=== PATIENT | female | born 1945 | race Caucasian/White ===

== ENCOUNTER 2017-07-03 08:09 | Outpatient (RCR) | payer MEDICARE ==
[2017-05-01 08:11] VITALS: BP 134/70
[2017-05-01] MEDS: LIDOCAINE/SOD BICARB 8.4% SYR ID PRN (08:13)
[2017-05-01] MEDS: HEPARIN FLSH (PORT) 500 UN/5ML IVP PRN (08:14)
[2017-06-05 08:14] VITALS: BP 155/88
[2017-06-05] MEDS: LIDOCAINE/SOD BICARB 8.4% SYR ID PRN (08:18)
[2017-06-05] MEDS: HEPARIN FLSH (PORT) 500 UN/5ML IVP PRN (08:18)
[~2017-07-03] VITALS: Ht 165.1 cm; Wt 61.9 kg
[~2017-07-03 08:09] MED LIST: ALTEPLASE RECOMB 2 MG VIAL IVP PRN; CHOL500050 PO; DEXTROSE 5%(*) 100 ML BAG 100 ML IVPB PRN; GABA-549 PO; IBUP600T22 PO; NS(*) 0.9% 100 ML BAG 100 ML IVPB PRN; NS(*) 0.9% 500 ML BAG 500 ML IV PRN; WATER STERILE 10 ML VIAL IVP PRN
[2017-07-03 08:13] VITALS: BP 135/77
[2017-07-03] MEDS: LIDOCAINE/SOD BICARB 8.4% SYR ID PRN (08:15)
[2017-07-03] MEDS: HEPARIN FLSH (PORT) 500 UN/5ML IVP PRN (08:15)
== END 2017-07-29 ==
LOC: SPU 08:09
PROVIDERS: ATTEND Internal Medicine Hematology
DX: C50.919 Malignant neoplasm of unspecified site of unspecified female breast (principal); M81.0 Age-related osteoporosis without current pathological fracture; E04.1 Nontoxic single thyroid nodule; R53.83 Other fatigue
CPT/HCPCS: 96523; J1642

== ENCOUNTER 2017-10-02 08:09 | Outpatient (RCR) | payer MEDICARE ==
[2017-07-31] MEDS: LIDOCAINE/SOD BICARB 8.4% SYR ID PRN (08:19)
[2017-07-31] MEDS: HEPARIN FLSH (PORT) 500 UN/5ML IVP PRN (08:19)
[2017-07-31 08:20] VITALS: BP 160/82
[2017-08-28 08:13] VITALS: BP 162/88
[2017-08-28] MEDS: LIDOCAINE/SOD BICARB 8.4% SYR ID PRN (08:16)
[2017-08-28] MEDS: HEPARIN FLSH (PORT) 500 UN/5ML IVP PRN (08:17)
[~2017-10-02 08:09] MED LIST changes: +WATER FOR INJ,STERILE 20 ML IVP PRN; -WATER STERILE 10 ML VIAL IVP PRN
[2017-10-02 08:14] VITALS: BP 155/84
[2017-10-02] MEDS: LIDOCAINE/SOD BICARB 8.4% SYR ID PRN (08:18)
[2017-10-02] MEDS: HEPARIN FLSH (PORT) 500 UN/5ML IVP PRN (08:21)
== END 2017-10-28 ==
LOC: SPU 08:09
PROVIDERS: ATTEND Internal Medicine Hematology
DX: C50.919 Malignant neoplasm of unspecified site of unspecified female breast (principal); M81.0 Age-related osteoporosis without current pathological fracture; E04.1 Nontoxic single thyroid nodule
CPT/HCPCS: 96523; J1642

== ENCOUNTER 2018-01-01 08:12 | Outpatient (RCR) | payer MEDICARE ==
[2017-10-30 08:17] VITALS: BP 136/78
[2017-10-30] MEDS: HEPARIN FLSH (PORT) 500 UN/5ML IVP PRN (08:22)
[2017-10-30] MEDS: LIDOCAINE/SOD BICARB 8.4% SYR ID PRN (08:22)
[2017-12-04] MEDS: LIDOCAINE/SOD BICARB 8.4% SYR ID PRN (08:20)
[2017-12-04 08:21] VITALS: BP 155/78
[2017-12-04] MEDS: HEPARIN FLSH (PORT) 500 UN/5ML IVP PRN (08:21)
[2017-12-04 08:38] LABS: PLATELET COUNT, AUTOMATED 193 K/uL (150-450)
[2017-12-20 08:37] VITALS: BP 153/78
--- NOTE | 2017-12-20 09:36 | [facility] ONCOLOGY NOTE ---
EVENT DATE: December 20, 2017 CHIEF COMPLAINT Patient is here today for follow up of her breast cancer. ONCOLOGY HISTORY The patient is a 72-year-old postmenopausal woman who was diagnosed with stage IIIA ([id number]) left breast cancer diagnosed November 17, 2010. The patient had left mastectomy and axillary lymph node dissection on November 29, 2010. Pathology came back positive for invasive adenocarcinoma, ductal type. Tumor size was 3.7 x 3.5 x 2.2, grade III/III. No skin or brian involvement or skeletal muscle involvement. There was extensive associated DCIS with comedo necrosis. Margins were close, 5 mm from the lid margin. 4 out of 11 lymph nodes came back positive for metastasis. The largest was 8 mm. Tumor was ER negative, KY negative, HER2/ric positive (3+ by immunohistochemistry). The patient received four courses of AC in dose dense between January 25, 2011 through March 2011. The patient started Herceptin therapy with paclitaxel, and she received 5 /12 weeks between March 2011 through May 03, 2011. The patient could not complete the Taxol therapy because of significant neuropathy. She started Herceptin every three weeks on June 07, 2011, which was discontinued after that because of deterioration of the left ventricular ejection fraction. Her left ventricular ejection fraction by echocardiogram in August 2011 was low at 45 , with significant decrease compared to her initial one in May 2011 which was 60 to 65%. After that, the patient completed her one year of adjuvant Herceptin therapy on May 16, 2012. She moved from [place] to [place], [place]. The patient currently in complete remission. HISTORY OF PRESENT ILLNESS Patient is here today for followup of her left breast cancer. She is doing fine currently. She has nasal discharge. She has low back pain. She has neuropathy with tingling and numbness in the hands and feet, which are getting better with time and gabapentin use. Other than that, patient is doing very well. PAST MEDICAL HISTORY 1. Migraine headache. 2. 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 3. Left breast cancer. 4. Taxol-induced neuropathy. 5. Thyroid nodules. 6. Diverticulitis. PAST SURGICAL HISTORY 1. Cholecystectomy in 2005. 2. D and C in 2007. 3. Total abdominal hysterectomy with salpingo-oophorectomy on April 23, 2008 , and the patient was noted to have focal superficial invasive adenocarcinoma, endometrial type, FIGO grade I. Ovaries were noted to be benign. The patient did not receive any chemotherapy or radiation therapy after that. 4. Left mastectomy with left axillary lymph node dissection done on November 20, 2010. SOCIAL HISTORY The patient is a retired teacher. She is . She has one son. She has smoked about one-half pack for forty years and is still smoking. She drinks a glass of wine occasionally with dinner. Denies any abuse of illicit drugs. FAMILY HISTORY Maternal grandmother had pancreatic cancer at the age of 74. Maternal uncle with leukemia at age of 58. Maternal aunt with ovarian cancer at the age of 75. CURRENT MEDICATIONS 1. Gabapentin 300 mg three times daily. 2. Vitamin D3, 2000 U daily. 3. Ibuprofen 600 mg at bedtime p.r.n. ALLERGIES No known drug allergies. REVIEW OF SYSTEMS CONSTITUTIONAL: No appetite or weight change. No fever, chills or sweating. No recent infection. HEENT: Ears: No tinnitus or hearing problem. Nose: She has nasal discharge. Throat: No sore throat or mouth ulcers. Eyes: No diplopia or visual changes. RESPIRATORY: No shortness of breath. No cough, expectoration or hemoptysis. CARDIOVASCULAR: No chest pain, orthopnea, or paroxysmal nocturnal dyspnea (PND) . No edema. No palpitations. GASTROINTESTINAL: No nausea or vomiting. No diarrhea or constipation. No change in bowel movements. No heartburn or swallowing difficulties. No abdominal pain. No jaundice. No hematemesis, melena or rectal bleeding. GENITOURINARY: No hematuria or dysuria. MUSCULOSKELETAL: She has low back pain. NEUROLOGICAL: She has tingling and numbness in the hands and feet. HEMATOLOGIC/LYMPHATIC: No bleeding or easy bruising. No weakness or fatigued. No enlarged lymph nodes. SKIN: No skin rash or lumps. PSYCHIATRIC: No anxiety or depression. PHYSICAL EXAMINATION GENERAL: Looks stable. Well-developed, well-nourished, and in no acute distress. VITAL SIGNS: Blood pressure 153/78, pulse 65] per minute, respirations 16 per minute, temperature 97.2, pulse oximetry 96% on room air. HEENT: Head: Atraumatic. No sinus tenderness to palpation. Eyes: No icterus or conjunctivitis. Mouth and throat: No oral thrush or mucositis. NECK: Supple. No cervical or supraclavicular lymphadenopathy. LUNGS: Clear to auscultation and percussion bilaterally. HEART: Regular rate and rhythm. No gallops, murmurs, clicks or rubs. ABDOMEN: Soft and lax. No tenderness. No hepatosplenomegaly. No masses. EXTREMITIES: No cyanosis, clubbing or edema. LYMPHATICS: No peripheral lymphadenopathy. NEUROLOGICAL: Conscious, alert and oriented times three. No focal motor or sensory deficits. PSYCHIATRIC: Mood and affect appear normal. SKIN: No skin rash, bruise or purpuric eruption. DIAGNOSTIC DATA CBC showed white count 8.7, hemoglobin 14.1, hematocrit 40.4, platelet 193,000. Chem panel totally normal except potassium 3, CA 15-3 is 25 and CA-27-29 is 23.2 ASSESSMENT 1. Stage IIIA (T2 N2a M0) left breast cancer status post left mastectomy and left axillary lymph node dissection done November 29, 2010 for 3.7 cm invasive ductal carcinoma grade 3/3 with negative margins. Four out of 11 lymph nodes were positive for metastasis. ER/KY negative. HER2/ric was positive. Patient received four doses of dose-dense AC between January 2011 through March 2011. She completed five weekly doses of paclitaxel out of the planned 12 doses on May 03, 2011 and treatment was stopped because of severe neuropathy. Patient started Herceptin every three weeks in April 2011. She finished her adjuvant Herceptin therapy with a total of one year treatment on May 16, 2012. She is currently in complete remission. I am planning to continue surveillance. I will see her again in a year with CBC, chem panel, CEA , CA 27-29 and CA 15-3. Generally speaking, she is doing very well. 2. Taxol-induced neuropathy, on gabapentin. She is taking gabapentin 300 mg once daily. Her neuropathy is better. We will continue to monitor. 3. History of thyroid nodule status post biopsy, but the material was not enough to make a diagnosis. She is currently asymptomatic. 4. History of diverticulitis. PLAN 1. Continue followup. 2. Patient to return in one year with CBC, chem panel, CEA, CA 27-29 and CA 15- 3. 3. Port flush every month. 4. Patient is to contact us for any new concerns or complaints. [facility]
[~2018-01-01 08:12] MED LIST changes: +POTA8TAB PO
[2018-01-01] MEDS: HEPARIN FLSH (PORT) 500 UN/5ML IVP PRN (08:35)
[2018-01-01] MEDS: LIDOCAINE/SOD BICARB 8.4% SYR ID PRN (08:35)
[2018-01-01 08:36] VITALS: BP 147/84
== END 2018-01-27 ==
LOC: SPU 08:12
PROVIDERS: ATTEND Internal Medicine Hematology
DX: C50.919 Malignant neoplasm of unspecified site of unspecified female breast (principal); M81.0 Age-related osteoporosis without current pathological fracture; E04.1 Nontoxic single thyroid nodule; R53.83 Other fatigue
CPT/HCPCS: 36591; 82378; 85025; 86300; 96523; G0463; J1642; 82040; 82247; 82310; 82374; 82435; 82565; 82947; 84075; 84132; 84155; 84295; 84450; 84460; 84520; 99212

== ENCOUNTER 2018-04-02 08:20 | Outpatient (RCR) | payer MEDICARE ==
[2018-01-29 08:26] VITALS: BP 148/88
[2018-01-29] MEDS: LIDOCAINE/SOD BICARB 8.4% SYR ID PRN (08:31)
[2018-01-29] MEDS: HEPARIN FLSH (PORT) 500 UN/5ML IVP PRN (08:31)
[2018-03-05] MEDS: LIDOCAINE/SOD BICARB 8.4% SYR ID PRN (08:18)
[2018-03-05] MEDS: HEPARIN FLSH (PORT) 500 UN/5ML IVP PRN (08:19)
[2018-04-02 08:24] VITALS: BP 148/86
[2018-04-02] MEDS: HEPARIN FLSH (PORT) 500 UN/5ML IVP PRN (08:29)
[2018-04-02] MEDS: LIDOCAINE/SOD BICARB 8.4% SYR ID PRN (08:29)
== END 2018-04-28 ==
LOC: SPU 08:20
PROVIDERS: ATTEND Internal Medicine Hematology
DX: C50.919 Malignant neoplasm of unspecified site of unspecified female breast (principal); M81.0 Age-related osteoporosis without current pathological fracture; E04.1 Nontoxic single thyroid nodule; R53.83 Other fatigue
CPT/HCPCS: 96523; J1642

== ENCOUNTER 2018-07-02 08:04 | Outpatient (RCR) | payer MEDICARE ==
[2018-04-30] MEDS: HEPARIN FLSH (PORT) 500 UN/5ML IVP PRN (08:06)
[2018-04-30] MEDS: LIDOCAINE/SOD BICARB 8.4% SYR ID PRN (08:06)
[2018-04-30 08:07] VITALS: BP 167/89
[2018-06-04] MEDS: HEPARIN FLSH (PORT) 500 UN/5ML IVP PRN (08:27)
[2018-06-04] MEDS: LIDOCAINE/SOD BICARB 8.4% SYR ID PRN (08:27)
[2018-06-04 08:29] VITALS: BP 143/84
[~2018-07-02 08:04] MED LIST changes: +LOR5/325 PO
[2018-07-02 08:15] VITALS: BP 150/76
[2018-07-02] MEDS: LIDOCAINE/SOD BICARB 8.4% SYR ID PRN (08:15)
[2018-07-02] MEDS: HEPARIN FLSH (PORT) 500 UN/5ML IVP PRN (08:15)
== END 2018-07-28 ==
LOC: SPU 08:04
PROVIDERS: ATTEND Internal Medicine Hematology
DX: C50.919 Malignant neoplasm of unspecified site of unspecified female breast (principal); M81.0 Age-related osteoporosis without current pathological fracture; E04.1 Nontoxic single thyroid nodule; R53.83 Other fatigue
CPT/HCPCS: 96523; J1642

== ENCOUNTER 2018-10-01 08:15 | Outpatient (RCR) | payer MEDICARE ==
[2018-07-30 08:11] VITALS: BP 149/85
[2018-07-30] MEDS: HEPARIN FLSH (PORT) 500 UN/5ML IVP PRN (08:13)
[2018-07-30] MEDS: LIDOCAINE/SOD BICARB 8.4% SYR ID PRN (08:13)
[2018-08-27] MEDS: LIDOCAINE/SOD BICARB 8.4% SYR ID PRN (08:10)
[2018-08-27] MEDS: HEPARIN FLSH (PORT) 500 UN/5ML IVP PRN (08:11)
[2018-08-27 08:13] VITALS: BP 132/95
[2018-10-01 08:29] VITALS: BP 169/93
[2018-10-01] MEDS: HEPARIN FLSH (PORT) 500 UN/5ML IVP PRN (08:39)
[2018-10-01] MEDS: LIDOCAINE/SOD BICARB 8.4% SYR ID PRN (08:39)
== END 2018-10-27 ==
LOC: SPU 08:15
PROVIDERS: ATTEND Internal Medicine Hematology
DX: C50.919 Malignant neoplasm of unspecified site of unspecified female breast (principal); M81.0 Age-related osteoporosis without current pathological fracture; E04.1 Nontoxic single thyroid nodule; R53.83 Other fatigue
CPT/HCPCS: 96523; J1642